=== PATIENT | female | born 1980 | race African-American/Black ===

== ENCOUNTER 2019-01-30 03:21 | Emergency (ER) | payer OTHER ==
[~2019-01-30] VITALS: Ht 172.7 cm; Wt 86.2 kg
[2019-01-30] MEDS ORDERED: NEURONTIN600 MG PO (03:39)
[2019-01-30] MEDS ORDERED: CYMBALTA30 MG PO (03:40)
[2019-01-30] MEDS ORDERED: ZANAFLEX4 MG PO (03:41)
[2019-01-30] MEDS ORDERED: HYDROCHLOROTH12.5 M1 PO (03:42)
[2019-01-30] MEDS ORDERED: DILT-XR120 MG PO (03:42)
[2019-01-30] MEDS ORDERED: OXYCONTIN10 M1 PO (03:42)
[2019-01-30 09:40] VITALS: BP 115/79
--- NOTE | 2019-01-31 10:03 | HC ---
[facility] [place] [address] CONSULTATION Name: DEBRA PITTS Room #: DEP Elvin#: [id number] Admission: 01/30/19 ������������������ Attend Phys: Discharge: 01/30/19 ������������������ Date of : 82 Report #: [id number] THIS REPORT FOR: //name// CC: KALIN Joseph [facility] unknown DATE OF SERVICE: 01/30/2019 HISTORY OF PRESENT ILLNESS: The patient is a 38-year-old female who was packing last night and put a pair of metal tweezers in her mouth while she was packing and apparently tripped and possibly swallowed the tweezers. She denies any nausea or vomiting. She states she is not sure if she swallowed in or not. She is confident that they were made out of metal. She was evaluated in the Emergency Room who called me this morning. KUB was initially performed as well as a chest x-ray showing no radiopaque foreign bodies identified. A spinal stimulator was noted. I advised them to proceed with a CT scan, so a CT scan of the chest was performed. I reviewed this with the radiologist this morning. There is no evidence of a foreign body. The esophagus appears normal. There is no foreign body in the stomach. The scan does not go below the stomach. She denies any chest pain or abdominal pain at this time. She denies any bleeding. No nausea or vomiting. She does state she has a mildly sore throat currently. She is swallowing her saliva without difficulty. She denies any dysphagia or odynophagia. I once again asked the patient is it possible she did not swallow the tweezers. She said it is very possible, but she is not sure, and again, she was confident they were made out of metal and not plastic. 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 She has had several surgeries apparently on her right lower extremity as well as back surgery including a spinal stimulator placement. MEDICATIONS ON ADMISSION: Neurontin, Cymbalta, Zanaflex, diltiazem, hydrochlorothiazide, OxyContin p.r.n. ALLERGIES: PENICILLIN. SOCIAL HISTORY: She denies any tobacco or alcohol use. FAMILY HISTORY: Negative for colon cancer. REVIEW OF SYSTEMS: As per HPI. PHYSICAL EXAMINATION: VITAL SIGNS: Temperature is 98.5, pulse 85, blood pressure 115/79, respiratory rate is 14, O2 sat is 98% on room air. GENERAL: She is alert and oriented x 3, in no acute distress. [facility] [address] [place] [address] CONSULTATION Name: DEBRA PITTS [facility] #: [facility]P [id number] Admission: 01/30/19 ������������������ Attend Phys: Discharge: 01/30/19 ������������������ Date of : 82 Report #: [id number] HEENT: Sclerae nonicteric. Oropharynx clear. NECK: Supple, without lymphadenopathy. CARDIOVASCULAR: Regular rate and rhythm. CHEST: Clear to auscultation bilaterally. ABDOMEN: Soft. She is nontender, nondistended, normoactive bowel sounds. EXTREMITIES: No cyanosis, clubbing or edema. No labs were performed. ASSESSMENT AND PLAN: Possible foreign body ingestion. The patient states she may have swallowed a pair of metal tweezers. She is confident these were made out of metal. She is unsure, however, if she actually swallowed it or not. I reviewed the x-rays with the radiologist including the CT scan as well as KUB. There is no evidence of a metallic foreign object on x-rays, therefore I suspect she may not have swallowed the tweezers. I do not think proceeding with an upper endoscopy at this time would be helpful as there is no evidence of a foreign body on x-ray. I explained to the patient that if she has symptoms in the future, we could proceed with a repeat scan, but again, I suspect this will be negative since there is no evidence of a metallic object on any of the x-rays this morning. She understands and agrees with this plan. Thank you for allowing me to participate in her care. ��������������������������������������������� <ELECTRONICALLY SIGNED> ���������������������������������������� By: Dashawn Daley MD ��������������������������������������������� 01/31/19 [id number] Dashawn Daley MD /nt
== END 2019-01-30 09:41 | disposition home or self-care (01) ==
LOC: ER 03:21
DX: Z71.1 Person with feared health complaint in whom no diagnosis is made (principal)